=== PATIENT | male | born 1980 | race Caucasian/White ===

== ENCOUNTER 2018-12-27 15:21 | Emergency (ER) | payer OTHER ==
[~2018-12-27] VITALS: Ht 172.7 cm; Wt 79.5 kg
[~2018-12-27 15:21] MED LIST: ALBUTEROL0.83 MG/ML IH; AMOXICILLIN 50500 MG PO; CEPHALEXIN500 M1 PO; CLINDAMYCIN HC150 MG PO; HORIZANT600 MG PO; LORTAB 5/500 501 TAB PO; NAPROSYN500 MG PO; NO HOME MEDICATIONS; NORCO 325 MG-51 TAB PO; NORCO 325 MG-7.1 TAB PO; PHENERGAN W/CO120 M1 PO; PROVIGIL200 MG PO; ZITHROMAX Z PA250 MG PO
[2018-12-27 15:45] VITALS: BP 128/76; TEMP 98.4
[2018-12-27 17:21] VITALS: PULSE 84
== END 2018-12-27 17:22 | disposition home or self-care (01) ==
LOC: COL.ER 15:21
DX: S62.306A Unspecified fracture of fifth metacarpal bone, right hand, initial encounter for closed fracture (principal); F17.210 Nicotine dependence, cigarettes, uncomplicated; W22.8XXA Striking against or struck by other objects, initial encounter; Y92.009 Unspecified place in unspecified non-institutional (private) residence as the place of occurrence of the external cause
CPT/HCPCS: Q4021

== ENCOUNTER 2019-10-23 14:23 | Emergency (ER) | payer SELFPAY ==
[~2019-10-23] VITALS: Ht 175.3 cm; Wt 92.3 kg
[2019-10-23 14:27] VITALS: BP 121/77; TEMP 98.3
[2019-10-23] MEDS ORDERED: FLEXERIL 1010 MG/TAB PO (16:12)
[2019-10-23] MEDS ORDERED: NORCO 325 MG-51 TAB PO (16:12)
[2019-10-23 16:43] VITALS: PULSE 78
== END 2019-10-23 16:44 | disposition home or self-care (01) ==
LOC: COL.ER 14:23
DX: M62.830 Muscle spasm of back (principal); X50.1XXA Overexertion from prolonged static or awkward postures, initial encounter; F17.210 Nicotine dependence, cigarettes, uncomplicated
CPT/HCPCS: J1170; J1885